=== PATIENT | female | born 1990 ===

== ENCOUNTER 2025-08-02 07:34 | Outpatient (CLI) | payer OTHER ==
[2025-08-02 08:52] LABS: BASO % 1.2 % (0.1-1.2); EOS # 0.14 (0.04-0.54); EOS % 2.7 % (0.7-7.0); LYMPH # 1.30 (1.18-3.74); LYMPH % 25.0 % (19.3-53.1); MEAN PLATELET VOLUME 9.30 fl (9.4-12.4); MONO # 0.47 (0.24-0.82); MONO % 9.0 % (4.7-12.5); NEUT # 3.21 (1.56-6.13); NEUT % 61.7 % (34.0-71.1); RED CELL DISTRIBUTION WIDTH 12.9 % (11.6-14.4)
[2025-08-02 08:56] LABS: URINE APPEARANCE Clear; URINE BILIRRUBIN Negative (NEGATIVE); URINE BLOOD Negative; URINE COLOR Yellow; URINE GLUCOSE Negative (NEGATIVE); URINE KETONE Negative (NEGATIVE); URINE LEUKOCYTE Small; URINE NITRATE Negative; URINE PROTEIN Negative (NEGATIVE); URINE UROBILINOGEN 0.2 E.U./dl
[2025-08-02 09:00] LABS: URINE BACTERIA 1117.2 uL (0.0-1933); URINE EPITHELIAL CELLS 19.8 uL (0.0-38.8); URINE RBC 9.0 uL (0.0-20.8); URINE WBC 5.0 uL (0.0-23.2)
[2025-08-02 09:08] LABS: URINE CAST 0.29 uL (0.0-1.40)
[2025-08-02 09:35] LABS: ALT/SGPT 21.0 U/L (12-78); AST/SGOT 18.0 U/L (15-37); BILIRUBIN TOTAL 0.47 mg/dL (0.3-1.2); BUN CREA RATIO 12.0 (7.0-25.0); CHOL HDL RATIO 1.9 (0-5.0); CREATININE SERUM 0.82 mg/dL (0.55-1.02); GFR 79.8; GLOBULINA 3.5 G/DL (2.4-3.5); GLUCOSE FASTING 87.0 mg/dL (65-100); HDL 86.0 mg/dl (40-60); LDL 65.0 mg/dl (0-130); OSMOLALITY SERUM 280.0 MOSM/KG (275-295); TSH 1.36 uIU/mL (0.358-3.74); VLDL 15.0 (0-39)
== END 2025-08-02 07:38 | disposition home or self-care (01) ==
LOC: LAB 07:34
DX: E78.5 Hyperlipidemia, unspecified (principal); R53.82 Chronic fatigue, unspecified; E55.9 Vitamin D deficiency, unspecified